=== PATIENT | male | born 1955 | race American Indian/Alaskan Native ===

== ENCOUNTER 2018-04-13 09:22 | Emergency (ER) | payer MEDICAID ==
[2018-04-13 09:41] VITALS: BP 122/82
[2018-04-13] MEDS ORDERED: ULTRAM PO ONE (10:19)
[2018-04-13] MEDS ORDERED: XYLOCAINE 2% INFILTRATI ONE (10:19)
--- NOTE | 2018-04-13 10:31 | Emergency Department Report ---
Abscess Boil HPI - HPI Chief Complaint: Skin/Abscess/Foreign Body Stated Complaint: LEFT ARM PAIN AND SWELLING Time Seen by Provider: 04/13/18 09:57 Duration: 1 Week Location: Upper Extremity (left posterior forearm) Severity: Mild History: Yes Pain, Yes Purulent Drainage, No Fever, No Numbness, No Foreign Body , No Previous History, No Insect Bite HPI: This is a 62-year-old -[place] male represents an abscess left posterior forearm for 1 week. Patient reports pain 8 out of 10 on pain scale that is intermittent. He noticed abscess one week ago but thought it could be a DVT that time. Patient have history of DVT 7 years ago. Patient reports purulent drainage starting yesterday and he has been cleaning soap and water. States abscess started out as a small pop but now it is open wound from the drainage and he is concerned of infection. Niacin numbness or tingling. Reports it is warm to touch with active drainage and tender. Denies fever, surrounding cellulitis, chest pain, numbness or tingling. Home Medications: Previous Rx's Medication Instructions Recorded Last Taken Type Ibuprofen [Motrin 600 MG tab] 600 mg PO Q8H PRN #15 tablet 04/13/18 Unknown Rx Sulfamethoxazole/Trimethoprim 1 each PO BID 10 Days #20 tablet 04/13/18 Unknown Rx [Bactrim DS TAB] traMADol [Ultram 50 MG tab] 50 mg PO Q6HR PRN #12 tablet 04/13/18 Unknown Rx Allergies/Adverse Reactions: Allergies Allergy/AdvReac Type Severity Reaction Status Date / Time No Known Allergies Allergy Unverified 04/13/18 09:30 ED Review of Systems ROS: Stated complaint: LEFT ARM PAIN AND SWELLING Other details as noted in HPI Constitutional: denies: chills, fever Respiratory: denies: cough, shortness of breath, wheezing Cardiovascular: denies: chest pain, palpitations Gastrointestinal: denies: abdominal pain, nausea, diarrhea Skin: lesions (abscess to left posterior forearm). denies: rash Neurological: denies: headache, weakness, paresthesias Psychiatric: denies: anxiety, depression ED Past Medical Hx - Past Medical History Hx Hypertension: Yes Hx Deep Vein Thrombosis: Yes (LEFT ARM) - Surgical History Past Surgical History?: Yes Additional Surgical History: LEFT SHOULDER - Social History Smoking Status: Current Every Day Smoker Substance Use Type: None - Medications Home Medications: Home Medications Medication Instructions Recorded Confirmed Last Taken Type Ibuprofen [Motrin 600 MG tab] 600 mg PO Q8H PRN #15 tablet 04/13/18 Unknown Rx Sulfamethoxazole/Trimethoprim 1 each PO BID 10 Days #20 tablet 04/13/18 Unknown Rx [Bactrim DS TAB] traMADol [Ultram 50 MG tab] 50 mg PO Q6HR PRN #12 tablet 04/13/18 Unknown Rx ED Abscess Boil Physical Exam - Exam General: Vital signs noted. No distress. Alert and acting appropriately. Front/Back of Body, Lg (Color): 1 - 2 cm erythematous nodule left posterior forearm, tenderness, active drainage, surrounding cellulitis Size: 2 cm Exam: Yes Tenderness, Yes Fluctuance, Yes Surrounding Cellulites/Erythema, Yes Normal Neurologic Exam, Yes Normal Circulation, No Lymphangitis, No Crepitation , No Heart Murmur I & D Note - I & D Note I & D Note: The area was prepared and draped in the usual, sterile manner. The site was anesthetized with 2% lidocaine without epinephrine. A linear incision along the local skin lines was made and the purulent material expressed. The abcess was explored thoroughly and sequestered pockets were opened. Bleeding was minimal. Packing: idodoform. Followup: The patient tolerated the procedure well without complications. Standard post-procedure care was explained and return precautions are given. ED Course Vital Signs 04/13/18 09:31 Temperature 97.8 F Pulse Rate 72 Respiratory 17 Rate Blood Pressure 122/82 O2 Sat by Pulse 95 Oximetry Critical care attestation.: If time is entered above; I have spent that time in minutes in the direct care of this critically ill patient, excluding procedure time. ED Medical Decision Making - Medical Decision Making This is a 62 y.o. male that presents with a painful abscess to left posterior forearm for 1 week. No history of prior abscess. Patient is stable and examined by me. Vitals are normal. Physical assessment of 2 cm fluctuance nodule with surrounding cellulitis to the left posterior forearm, appears to be spider bite. No acute signs of distress noted. Given norco 7.5 mg po once in ER. I&D refer to note. Discussed plan to start bactrim DS, ibuprofen, and tramadol with patient. Educated patient on follow up plan to have packing removed and wound reassessed in 2-3 days. Patient agrees to ED plan of care. Discharged home and follow up with PCP in 2-3 days. ED Disposition Clinical Impression: Abscess of forearm, left Insect bite Qualifiers: Encounter type: initial encounter Qualified Code(s): W57.XXXA - Bitten or stung by nonvenomous insect and other nonvenomous arthropods, initial encounter Disposition: TO HOME OR SELFCARE Is pt being admited?: No Does the pt Need Aspirin: No Condition: Stable Instructions: Abscess Incision and Drainage (ED), Abscess (ED), Insect Bite or Sting (ED) Additional Instructions: Keep packing in place for 2-3 days. Return to ER or f/u with PCP to have packing removed and wound reassessed. Complete full round of bactrim DS antibiotic as prescribed. Follow up with PCP or ER in 2-3 days. Return to ER if foul smelling discharge, swelling, or severe pain to wound. Prescriptions: Ibuprofen [Motrin 600 MG tab] 600 mg PO Q8H PRN #15 tablet PRN Reason: Pain Sulfamethoxazole/Trimethoprim [Bactrim DS TAB] 1 each PO BID 10 Days #20 tablet traMADol [Ultram 50 MG tab] 50 mg PO Q6HR PRN #12 tablet PRN Reason: Pain Referrals: [facility] [Outside] - 3-5 Days [facility] [Outside] - 3-5 Days [facility] [Outside] - 3-5 Days Time of Disposition: 11:19 Print Language: POLISH
[2018-04-13] MEDS ORDERED: BOOSTRIX IM ONE (11:12)
== END 2018-04-13 11:25 | disposition home or self-care (01) ==
LOC: ED 09:22
DX: L02.414 Cutaneous abscess of left upper limb (principal); I10 Essential (primary) hypertension; F17.200 Nicotine dependence, unspecified, uncomplicated; Z86.718 Personal history of other venous thrombosis and embolism; W57.XXXA Bitten or stung by nonvenomous insect and other nonvenomous arthropods, initial encounter; Y93.89 Activity, other specified; Y99.8 Other external cause status; Y92.89 Other specified places as the place of occurrence of the external cause
CPT/HCPCS: 90471; 90715

== ENCOUNTER 2018-04-15 09:15 | Emergency (ER) | payer MEDICAID ==
[2018-04-15 09:44] VITALS: BP 132/79
--- NOTE | 2018-04-15 10:47 | Emergency Department Report ---
ED Recheck HPI - General Chief Complaint: Laceration/Recheck/Suture Stated Complaint: SPIDER WOUND CHECKED Time Seen by Provider: 04/15/18 10:25 Source: patient Mode of arrival: Ambulatory Limitations: Physical Limitation - History of Present Illness Initial Comments: This is a 62-year-old male nontoxic, well nourished in appearance, no acute signs of distress presents to the ED for packing removal. Patient stated that there was a incision and drainage done on 04/13/2018 for left forearm. They stated that he is currently taking an antibiotics Bactrim twice a day. Patient denies any new symptoms. Patient denies any fever, chills, nausea, vomiting, chest pain, short of breath, headache or stiff neck. Patient denies any allergies. Past medical history includes DVT left arm and hypertension. MD Complaint: wound re-check -: days(s) (4) Initial Visit For: abscess Returns Today for: wound recheck Symptoms Since Prior Visit: no new symptoms, improved Context: planned re-check Associated Symptoms: none. denies: fever, chills, chest pain, shortness of breath, rash, malaise, nasuea, abdominal pain - Related Data Previous Rx's Medication Instructions Recorded Last Taken Type Ibuprofen [Motrin 600 MG tab] 600 mg PO Q8H PRN #15 tablet 04/13/18 Unknown Rx Sulfamethoxazole/Trimethoprim 1 each PO BID 10 Days #20 tablet 04/13/18 Unknown Rx [Bactrim DS TAB] traMADol [Ultram 50 MG tab] 50 mg PO Q6HR PRN #12 tablet 04/13/18 Unknown Rx Allergies Allergy/AdvReac Type Severity Reaction Status Date / Time No Known Allergies Allergy Unverified 04/13/18 09:30 ED Review of Systems ROS: Stated complaint: SPIDER WOUND CHECKED Other details as noted in HPI Constitutional: denies: chills, fever Eyes: denies: eye pain, eye discharge, vision change ENT: denies: ear pain, throat pain Respiratory: denies: cough, shortness of breath, wheezing Cardiovascular: denies: chest pain, palpitations Endocrine: no symptoms reported Gastrointestinal: denies: abdominal pain, nausea, diarrhea Genitourinary: denies: urgency, dysuria Musculoskeletal: denies: back pain, joint swelling, arthralgia Skin: denies: rash, lesions Neurological: denies: headache, weakness, paresthesias Psychiatric: denies: anxiety, depression Hematological/Lymphatic: denies: easy bleeding, easy bruising ED Past Medical Hx - Past Medical History Previous Medical History?: Yes Hx Hypertension: Yes Hx Deep Vein Thrombosis: Yes (LEFT ARM) - Surgical History Past Surgical History?: Yes Additional Surgical History: LEFT SHOULDER - Social History Smoking Status: Current Every Day Smoker Substance Use Type: Prescribed - Medications Home Medications: Home Medications Medication Instructions Recorded Confirmed Last Taken Type Ibuprofen [Motrin 600 MG tab] 600 mg PO Q8H PRN #15 tablet 04/13/18 Unknown Rx Sulfamethoxazole/Trimethoprim 1 each PO BID 10 Days #20 tablet 04/13/18 Unknown Rx [Bactrim DS TAB] traMADol [Ultram 50 MG tab] 50 mg PO Q6HR PRN #12 tablet 04/13/18 Unknown Rx ED Physical Exam - General Limitations: Physical Limitation General appearance: alert, in no apparent distress - Head Head exam: Present: atraumatic, normocephalic - Eye Eye exam: Present: normal appearance Pupils: Present: normal accommodation - ENT ENT exam: Present: mucous membranes moist - Neck Neck exam: Present: normal inspection - Respiratory Respiratory exam: Present: normal lung sounds bilaterally. Absent: respiratory distress - Cardiovascular Cardiovascular Exam: Present: regular rate, normal rhythm. Absent: systolic murmur, diastolic murmur, rubs, gallop - GI/Abdominal GI/Abdominal exam: Present: soft, normal bowel sounds - Rectal Rectal exam: Present: deferred - Extremities Exam Extremities exam: Present: normal inspection, full ROM, normal capillary refill , other (1/4 packing to left forarm. Well healing with no pus or drainage noted. ). Absent: tenderness, joint swelling - Back Exam Back exam: Present: normal inspection - Neurological Exam Neurological exam: Present: alert, oriented X3 - Psychiatric Psychiatric exam: Present: normal affect, normal mood - Skin Skin exam: Present: warm, dry, intact, normal color. Absent: rash ED Course Vital Signs 04/15/18 09:41 Temperature 98.1 F Pulse Rate 67 Respiratory 18 Rate Blood Pressure 132/79 O2 Sat by Pulse 98 Oximetry - Reevaluation(s) Reevaluation #1: 04/15/18 10:50 Patient is speaking in full sentences with no signs of distress noted. ED Recheck MDM - Medical Decision Making One fourth packing iodoform removed from abscess. Patient was instructed to continue taking antibiotics. The abscess has been clean with soap and water and a sterile dressing applied. Patient was educated on proper wound care. Patient is referred to Follow-up with a primary care doctor in 3-5 days or if symptoms worsen and continue return to emergency room as soon as possible. At time of discharge, the patient does not seem toxic or ill in appearance. No acute signs of distress noted. Patient agrees to discharge treatment plan of care. No further questions noted by the patient. Critical care attestation.: If time is entered above; I have spent that time in minutes in the direct care of this critically ill patient, excluding procedure time. ED Disposition Clinical Impression: Abscess packing removal Disposition: DC- TO HOME OR SELFCARE Is pt being admited?: No Does the pt Need Aspirin: No Condition: Stable Instructions: Acute Wound Care (ED) Additional Instructions: Follow-up with a primary care doctor in 3-5 days or if symptoms worsen and continue return to emergency room as soon as possible. Continue taking antibiotics as prescribed to use during her previous visit. Referrals: EDUARDO MORGAN MD [Primary Care Provider] - 3-5 Days HELDER WHALEY MD [Staff Physician] - 3-5 Days [facility] [Outside] - 3-5 Days
== END 2018-04-15 11:03 | disposition home or self-care (01) ==
LOC: ED 09:15
DX: Z48.01 Encounter for change or removal of surgical wound dressing (principal); I10 Essential (primary) hypertension; F17.200 Nicotine dependence, unspecified, uncomplicated; Z86.718 Personal history of other venous thrombosis and embolism
CPT/HCPCS: 99282

== ENCOUNTER 2020-03-03 08:23 | Emergency (ER) | payer MEDICARE ==
[2020-03-03] MEDS ORDERED: ONDANSETRON 4 MG/2 ML INJ IV ONE (08:35)
[2020-03-03] MEDS ORDERED: HYDROmorphone 1 MG/1 ML INJ IV ONE (08:35)
--- NOTE | 2020-03-03 08:42 | Emergency Department Report ---
ED Male HPI - General Stated complaint: ABD PAIN Source: patient Mode of arrival: Ambulatory Limitations: No Limitations - History of Present Illness Initial comments: 64-year male with a past medical history of hypertension, left shoulder injury/surgery followed by left arm DVT presents to the hospital complains of urinary retention will last urine output last night. Patient has developed worsening suprapubic abdominal pain throughout the night which worsened this morning. Patient reports 6 to 7 months of straining with urination and intermittent dribbling. He denies known history of BPH or prostate cancer. Denies dysuria, fever, or hematuria. Patient noted to have right sided facial weakness of the upper and lower face while speaking. He denies history of previous stroke. He states he noticed his face has been weak for the last 3 to 4 months but he has not followed up with a physician since symptoms onset. He denies any other new onset weakness or numbness. - Related Data Previous Rx's Medication Instructions Recorded Last Taken Type Ibuprofen [Motrin 600 MG tab] 600 mg PO Q8H PRN #15 tablet 04/13/18 Unknown Rx Sulfamethoxazole/Trimethoprim 1 each PO BID 10 Days #20 tablet 04/13/18 Unknown Rx [Bactrim DS TAB] traMADoL [Ultram 50 MG tab] 50 mg PO Q6HR PRN #12 tablet 04/13/18 Unknown Rx Tamsulosin [Flomax] 0.4 mg PO QDAY #30 cap 03/03/20 Unknown Rx Allergies Allergy/AdvReac Type Severity Reaction Status Date / Time No Known Allergies Allergy Unverified 04/13/18 09:30 ED Review of Systems ROS: Stated complaint: ABD PAIN Other details as noted in HPI Comment: All other systems reviewed and negative ED Past Medical Hx - Past Medical History Hx Hypertension: Yes Hx Deep Vein Thrombosis: Yes (LEFT ARM) - Surgical History Additional Surgical History: LEFT SHOULDER - Social History Smoking Status: Current Every Day Smoker Substance Use Type: Prescribed - Medications Home Medications: Home Medications Medication Instructions Recorded Confirmed Last Taken Type Ibuprofen [Motrin 600 MG tab] 600 mg PO Q8H PRN #15 tablet 04/13/18 Unknown Rx Sulfamethoxazole/Trimethoprim 1 each PO BID 10 Days #20 tablet 04/13/18 Unknown Rx [Bactrim DS TAB] traMADoL [Ultram 50 MG tab] 50 mg PO Q6HR PRN #12 tablet 04/13/18 Unknown Rx Tamsulosin [Flomax] 0.4 mg PO QDAY #30 cap 03/03/20 Unknown Rx ED Physical Exam - Other Other exam information: General: No acute distress Head: Atraumatic Eyes: normal appearance ENT: Moist mucous membranes Neck: Normal appearance, no midline tenderness Chest: Clear to auscultation bilaterally CV: Regular rate and rhythm Abdomen: Soft, normal bowel sounds, suprapubic distention with palpable bladder above the pubic symphysis and tender to palpation Back: Normal inspection Extremity: Normal inspection, limited range of motion of left shoulder due to previous injury (chronic) Neuro: Alert O x 3, speech clear, right-sided facial paralysis involving the upper and lower face, equal handgrip, equal dorsiflexion, sensation intact and equal bilateral to light touch Psych: Appropriate behavior Skin: No rash ED Course Vital Signs 03/03/20 03/03/20 08:34 09:58 Temperature 98.0 F Pulse Rate 76 67 Respiratory 16 Rate Blood Pressure 147/83 Blood Pressure 119/71 [Left] O2 Sat by Pulse 97 98 Oximetry ED Medical Decision Making - Lab Data Result diagrams: 03/03/20 08:46 03/03/20 08:46 Lab Results 03/03/20 03/03/20 03/03/20 Range/Units 08:46 08:46 Unknown WBC 6.4 (4.5-11.0) K/mm3 RBC 3.59 L (3.65-5.03) M/mm3 Hgb 12.3 (11.8-15.2) gm/dl Hct 35.3 L (35.5-45.6) % MCV 98 H (84-94) fl MCH 34 H (28-32) pg MCHC 35 H (32-34) % RDW 15.4 H (13.2-15.2) % Plt Count 238 (140-440) K/mm3 Lymph % (Auto) 20.6 (13.4-35.0) % Gray % (Auto) 9.0 H (0.0-7.3) % Eos % (Auto) 1.6 (0.0-4.3) % Baso % (Auto) 0.5 (0.0-1.8) % Lymph # 1.3 (1.2-5.4) K/mm3 Gray # 0.6 (0.0-0.8) K/mm3 Eos # 0.1 (0.0-0.4) K/mm3 Baso # 0.0 (0.0-0.1) K/mm3 Seg Neutrophils % 68.3 (40.0-70.0) % Seg Neutrophils # 4.3 (1.8-7.7) K/mm3 Sodium 138 (137-145) mmol/L Potassium 4.1 (3.6-5.0) mmol/L Chloride 103.6 (98-107) mmol/L Carbon Dioxide 21 L (22-30) mmol/L Anion Gap 18 mmol/L BUN 10 (9-20) mg/dL Creatinine 0.9 (0.8-1.5) mg/dL Estimated GFR > 60 ml/min BUN/Creatinine Ratio 11 % Glucose 101 H (75-100) mg/dL Calcium 10.3 H (8.4-10.2) mg/dL Urine Color Yellow (Yellow) Urine Turbidity Clear (Clear) Urine pH 5.0 (5.0-7.0) Ur Specific [place] 1.011 (1.003-1.030) Urine Protein <15 mg/dl (Negative) mg/dL Urine Glucose (UA) Neg (Negative) mg/dL Urine Ketones Neg (Negative) mg/dL Urine Blood Sm (Negative) Urine Nitrite Neg (Negative) Urine Bilirubin Neg (Negative) Urine Urobilinogen < 2.0 (<2.0) mg/dL Ur Leukocyte Esterase Neg (Negative) Urine WBC (Auto) 2.0 (0.0-6.0) /HPF Urine RBC (Auto) 2.0 (0.0-6.0) /HPF Urine Mucus Few /HPF - Medical Decision Making Molina catheter placed by RN. 800 of urine output. Kidney function normal. Urine without signs of infection. Patient be discharged with Molina with leg bag and encouraged to follow-up with urology. Flomax will be initiated for clinical symptoms of BPH. Patient has had right-sided facial paralysis for several months. This includes upper and lower face therefore likely related to a Aguilar's palsy. Patient be encouraged to follow-up with both neurology and primary care doctor as an outpatient since these are not acute neurologic deficits Critical Care Time: No Critical care attestation.: If time is entered above; I have spent that time in minutes in the direct care of this critically ill patient, excluding procedure time. ED Disposition Clinical Impression: Urine retention, Right-sided Aguilar's palsy Disposition: DC-01 TO HOME OR SELFCARE Is pt being admited?: No Does the pt Need Aspirin: No Condition: Stable Instructions: Urinary Retention in Men (ED), Aguilar Palsy (ED) Additional Instructions: Take the medication as prescribed. Follow-up with your doctor or doctor/clinic provided. Return if symptoms worsen as indicated by your discharge instru ctions. It is very important that you follow-up with a urologist to remove your urinary catheter and to continue your outpatient work-up and evaluation to definitively determine why you are having difficulty urinating. DR ZUÑIGA IS THE UROLOGIST YOU NEED TO CALL FOR OUTPATIENT FOLLOW UP. You have had a right-sided facial weakness for the last several months. I suspect this is secondary to Aguilar's palsy. Please follow-up with both your primary care doctor and a neurologist for further evaluation and treatment. Prescriptions: Tamsulosin [Flomax] 0.4 mg PO QDAY #30 cap Referrals: [facility] MD BRENNA [Primary Care Provider] - 3-5 Days (Primary care clinic) DEMETRIUS LANCE MD [Staff Physician] - 3-5 Days (Primary care doctor) REANNA COHEN MD [Staff Physician] - 3-5 Days (Primary care doctor) ARSALAN MONSIVAIS MD [Staff Physician] - 7-10 days (Neurologist) VINCENT ZUÑIGA MD [Staff Physician] - 3-5 Days (Urology) Time of Disposition: 10:38
[2020-03-03 09:08] LABS: Basophils % (Auto) 0.5 % (0.0-1.8); Eosinophils # (Auto) 0.1 K/mm3 (0.0-0.4); Eosinophils % (Auto) 1.6 % (0.0-4.3); Hematocrit 35.3 % (35.5-45.6); Hemoglobin 12.3 gm/dl (11.8-15.2); Lymphocytes # (Auto) 1.3 K/mm3 (1.2-5.4); Lymphocytes % (Auto) 20.6 % (13.4-35.0); Mean Corpuscular HGB Conc 35 % (32-34); Mean Corpuscular Volume 98 fl (84-94); Monocytes # (Auto) 0.6 K/mm3 (0.0-0.8); Platelet Count 238 K/mm3 (140-440); Red Blood Count 3.59 M/mm3 (3.65-5.03); Red Cell Distribution Width 15.4 % (13.2-15.2)
[2020-03-03 09:29] LABS: BUN/Creatinine Ratio 11; Blood Urea Nitrogen 10 mg/dL (9-20); Calcium 10.3 mg/dL (8.4-10.2); Hemolysis Index 23
[2020-03-03 09:59] VITALS: BP 119/71
[2020-03-03 10:04] LABS: Bilirubin,Urine NEG (Negative); Blood,Urine SM (Negative); Color,Urine Yellow (Yellow); Mucus,Urine FEW /HPF; Protein,Urine <15 mg/dL mg/dL (Negative); Urobilinogen,Urine < 2.0 mg/dL (<2.0)
== END 2020-03-03 11:24 | disposition home or self-care (01) ==
LOC: ED 08:23
DX: R33.9 Retention of urine, unspecified (principal); G51.0 Bell's palsy; I10 Essential (primary) hypertension; F17.200 Nicotine dependence, unspecified, uncomplicated; Z98.890 Other specified postprocedural states; Z86.718 Personal history of other venous thrombosis and embolism; Z79.1 Long term (current) use of non-steroidal anti-inflammatories (NSAID); Z79.899 Other long term (current) drug therapy
CPT/HCPCS: 36415; 51702; 80048; 81001; 85025; 96374; 96375; 99284; J1170; J2405